=== PATIENT | male | born 1940 | race Caucasian/White ===

== ENCOUNTER → 2016-09-02 | Outpatient (CLI) | payer OTHER ==
--- NOTE | 2016-09-02 19:28 | US ---
Left Upper Extremity Ultrasound with Duplex Doppler History: Left upper extremity swelling and pain, palpable cord in the left neck. History of non-Hod gkin's lymphoma. Technique: The veins of the left neck and upper extremity are assessed with grayscale and Doppler ul trasound with compression of accessible vein segments. Comparison: None available. Findings: There is DVT throughout the visualized subclavian vein. The internal jugular vein is ayala nt, with diminished pulsatility, which could be related to clot in the innominate vein, although ther e is no visible clot in the innominate on miguel-scale or color. The axillary, brachial, radial, ulnar , basilic, and cephalic veins are patent. A superficial vein in the left neck in the area of palpabl e interest is thrombosed. Impressions 1. DVT in the left subclavian vein, extending to the confluence with the internal jugular vein. 2. Superficial thrombophlebitis in the region of palpable cord. Findings discussed with Dr. Param Luciano today at 1910 hours.
== END ==
LOC: FIMAGING 18:28
PROVIDERS: ATTEND Internal Medicine Hematology & Oncology
DX: I82.B12 Acute embolism and thrombosis of left subclavian vein (principal); I80.8 Phlebitis and thrombophlebitis of other sites

== ENCOUNTER 2017-06-01 09:09 | Inpatient (IN) | payer OTHER ==
--- NOTE | 2017-06-01 09:12 | EDPHY ---
H & P Time Seen by Provider: 06/01/17 09:11 HPI/ROS: CHIEF COMPLAINT: Stroke alert, left-sided weakness HISTORY OF PRESENT ILLNESS: The patient is brought to the emergency department as a stroke alert. He developed acute left-sided weakness approximately 35 minutes prior to arrival at 8:30 a.m.. The patient reportedly was having intercourse with his in the shower when his symptoms developed. The patient does have a history of arrhythmia and is currently on Xarelto. He took that medication yesterday as prescribed. The patient states that his left- sided arm and leg weakness is improving however has not resolved. He denies significant headache. The patient denies prior history of stroke or TIA. The patient does have a history of colon cancer by his report. REVIEW OF SYSTEMS: A comprehensive 10 point review of systems is otherwise negative aside from elements mentioned in the history of present illness. Source: Patient - Personal History Tetanus Vaccine Date: within last 10 years - Medical/Surgical History Hx Asthma: No Hx Chronic Respiratory Disease: No Hx Diabetes: No Hx Cardiac Disease: No Hx Renal Disease: No Hx Cirrhosis: No Hx Alcoholism: No Hx HIV/AIDS: No Hx Splenectomy or Spleen Trauma: No Other PMH: PMH: polycythemia, pacer for bradycardia - Social History Smoking Status: Never smoked - Physical Exam Exam: General Appearance: Alert, no distress Eyes: Pupils equal and round no pallor or injection ENT, Mouth: Mucous membranes moist Respiratory: There are no retractions, lungs are clear to auscultation, pacemaker battery noted to left anterior chest wall Cardiovascular: Regular rate and rhythm Gastrointestinal: Abdomen is soft and nontender, no masses, bowel sounds normal Neurological: Alert and oriented x4, 4/5 strength noted left upper extremity, left lower extremity, pronator drift present, speech fluent questionable mild facial droop noted on the left side Skin: Warm and dry, no rashes Musculoskeletal: Neck is supple nontender Extremities: symmetrical, full range of motion Constitutional: Initial Vital Signs Temperature (C) 36.8 C 06/01/17 09:10 Heart Rate 83 06/01/17 09:10 Respiratory Rate 18 06/01/17 09:10 Blood Pressure 147/94 H 06/01/17 09:10 O2 Sat (%) 95 06/01/17 09:10 O2 Delivery Mode Room Air O2 (L/minute) 2 Allergies/Adverse Reactions: No Known Allergies Allergy (Verified 06/10/16 11:52) Home Medications: Medication Instructions Recorded Hydroxyurea [Hydrea 500 mg (RX)] 12/25/12 Xarelto 06/01/16 Medical Decision Making - Diagnostics EKG Interpretation: EKG: Complete interpretation has been separately recorded in the [facility] archive. Summary impression: Atrial paced rhythm, rate 86 ED Course/Re-evaluation: The patient presents to the ED is acute stroke alert. He was last seen normal at 830 this morning. He arrives with an NIH stroke scale 7-8. The patient was taken for a stat noncontrast head CT scan which demonstrated no evidence of intracranial hemorrhage. The patient did have a CT angiogram of his head and neck which demonstrates no evidence of dissection or significant stenosis. The patient return from the CT scanner. The patient does take Xarelto for underlying arrhythmia. The patient reports he last took this medication yesterday. The patient is not a candidate for thrombolytics therapy based upon his Xarelto usage. Consultation was made with the patient's primary care provider Dr. Theo Crawford at 9:50 a.m.. The patient has been given a 325 mg dose of aspirin. Consultation was made with Neurology service at 9:53 a.m. The patient will be admitted to the hospital for further evaluation and management of his acute stroke. He cannot undergo an MRI secondary to his pacemaker. Differential Diagnosis: Differential diagnosis considered includes stroke, TIA, migraine headache, intracranial hemorrhage Critical Care Time: Critical care time exclusive of procedures and exclusive of the PA's time was 35 minutes, performed by myself, Francois Cummings MD. The patient arrives to the emergency department emergently by EMS with an acute stroke. He required emergent transfer to the CT scan to exclude intracranial hemorrhage. Patient was found to have an acute stroke and will require admission to the hospital for further care. Consultation was made with the patient's primary care provider Dr. Jarvis Crawford as well as our on-call Neurology service. - Data Points Laboratory Results: Laboratory Results 06/01/17 09:18 06/01/17 09:18 06/01/17 06/01/17 06/01/17 09:18 09:18 09:18 WBC 3.66 10^3/uL L 10^3/uL (3.80-9.50) RBC 6.24 10^6/uL 10^6/uL (4.40-6.38) Hgb 16.3 g/dL g/dL (13.7-17.5) POC Hgb Hct 52.0 % H % (40.0-51.0) POC Hct MCV 83.3 fL fL (81.5-99.8) MCH 26.1 pg L pg (27.9-34.1) MCHC 31.3 g/dL L g/dL (32.4-36.7) RDW 17.4 % H % (11.5-15.2) Plt Count 279 10^3/uL 10^3/uL (150-400) MPV 12.3 fL H fL (8.7-11.7) Neut % (Auto) Not Reported Lymph % (Auto) Not Reported Kay % (Auto) Not Reported Eos % (Auto) Not Reported Baso % (Auto) Not Reported Nucleat RBC Rel Count 0.0 % % (0.0-0.2) Absolute Neuts (auto) Not Reported Absolute Lymphs (auto) Not Reported Absolute Monos (auto) Not Reported Absolute Eos (auto) Not Reported Absolute Basos (auto) Not Reported Absolute Nucleated RBC 0.00 10^3/uL 10^3/uL (0-0.01) Immature Gran % Not Reported Seg Neutrophils % 62 % % Band Neutrophils % 15 % % Lymphocytes % 8 % % Monocytes % 8 % % Eosinophils % 4 % % Basophils % 3 % % Immature Gran # Not Reported Absolute Seg Neuts 2.27 10^/uL 10^/uL (1.70-6.50) Absolute Band Neuts 0.55 10^3/uL 10^3/uL (0.00-0.70) Absolute Lymphocytes 0.29 10^3/uL L 10^3/uL (1.00-3.00) Absolute Monocytes 0.29 10^3/uL L 10^3/uL (0.30-0.80) Absolute Eosinophils 0.15 10^3/uL 10^3/uL (0.03-0.40) Absolute Basophils 0.11 10^3/uL H 10^3/uL (0.02-0.10) Platelet Estimate ADEQUATE (ADEQ) Polychromasia 1+ H Elliptocytes 1+ H PT 15.0 SEC SEC (12.0-15.0) INR 1.18 H (0.83-1.16) POC Sodium Sodium 143 mEq/L mEq/L (134-144) POC Potassium Potassium 4.3 mEq/L mEq/L (3.5-5.2) POC Chloride Chloride 106 mEq/L mEq/L (97-110) Carbon Dioxide 26 mEq/l mEq/l (22-31) Anion Gap 11 mEq/L mEq/L (8-16) POC BUN BUN 21 mg/dL mg/dL (7-23) Creatinine 1.2 mg/dL mg/dL (0.7-1.3) POC Creatinine Estimated GFR 59 Glucose 94 mg/dL mg/dL (70-100) POC Glucose Calcium 10.5 mg/dL H mg/dL (8.5-10.4) 06/01/17 09:13 WBC RBC Hgb POC Hgb 17.7 gm/dL H gm/dL (13.7-17.5) Hct POC Hct 52 % H % (40-51) MCV MCH MCHC RDW Plt Count MPV Neut % (Auto) Lymph % (Auto) Kay % (Auto) Eos % (Auto) Baso % (Auto) Nucleat RBC Rel Count Absolute Neuts (auto) Absolute Lymphs (auto) Absolute Monos (auto) Absolute Eos (auto) Absolute Basos (auto) Absolute Nucleated RBC Immature Gran % Seg Neutrophils % Band Neutrophils % Lymphocytes % Monocytes % Eosinophils % Basophils % Immature Gran # Absolute Seg Neuts Absolute Band Neuts Absolute Lymphocytes Absolute Monocytes Absolute Eosinophils Absolute Basophils Platelet Estimate Polychromasia Elliptocytes PT INR POC Sodium 143 mEq/L mEq/L (134-144) Sodium POC Potassium 3.8 mEq/L mEq/L (3.3-5.0) Potassium POC Chloride 105 mEq/L mEq/L (97-110) Chloride Carbon Dioxide Anion Gap POC BUN 22 mg/dL mg/dL (7-23) BUN Creatinine POC Creatinine 1.3 mg/dL mg/dL (0.7-1.3) Estimated GFR Glucose POC Glucose 98 mg/dL mg/dL (70-100) Calcium Medications Given: Discontinued Medications Aspirin (Aspirin Rectal) 300 mg [place] EDNOW ONE Stop: 06/01/17 09:54 Last Admin: 06/01/17 10:05 Dose: Not Given Aspirin (Aspirin) 324 mg PO EDNOW ONE Stop: 06/01/17 09:55 Last Admin: 06/01/17 10:02 Dose: 324 mg Point of Care Test Results: 06/01/17 09:13 POC Sodium 143 POC Potassium 3.8 POC Chloride 105 POC BUN 22 POC Creatinine 1.3 POC Glucose 98 Departure - Departure Disposition: [facility] Inpatient Acute Clinical Impression: Acute ischemic stroke Condition: Fair NIH Stroke Scale Date of Exam: 06/01/17 Time of Exam: 09:50 Level of Consciousness: Alert LOC Questions: Answers Both LOC Commands: Performs Both Correctly Best Gaze: Normal Visual: No Visual Loss Facial Palsy: Minor Paralysis Motor Arm-Left: Some Effort to [place] Motor Arm-Right: No Drift Motor Leg-Left: Some Effort to [place] Motor Leg-Right: No Drift Limb Ataxis: Present in One Limb Sensory: Mild/Mod Sensory Loss Best Language: No Aphasia Dysarthria: Normal Extinction and Inattention (Neglect): No Abnormality NIH Scale Score: 7
[2017-06-01] MEDS ORDERED: IOPAMIDOL (ISOVUE 370) 100 ML BTL IV ONE (09:18)
[2017-06-01 09:27] LABS: PLATELET COUNT 279 10^3/uL (150-400)
--- NOTE | 2017-06-01 09:33 | CPEKG ---
Heart Rate: 86 RR Interval: 698 P-R Interval: 164 QRSD Interval: 144 QT Interval: 384 QTC Interval: 460 P [place]: 76 QRS [place]: -12 T Wave [place]: 49 EKG Severity - ABNORMAL ECG - EKG Impression: ATRIAL-PACED COMPLEXES EKG Impression: VENTRICULAR PREMATURE COMPLEX EKG Impression: RIGHT BUNDLE BRANCH BLOCK Electronically Signed By: Francois Cummings 01-Jun-2017 10:00:45
--- NOTE | 2017-06-01 09:33 | CPEKG ---
Heart Rate: 86 RR Interval: 698 P-R Interval: 164 QRSD Interval: 144 QT Interval: 384 QTC Interval: 460 P [place]: 76 QRS [place]: -12 T Wave [place]: 49 EKG Severity - ABNORMAL ECG - EKG Impression: ATRIAL-PACED COMPLEXES EKG Impression: VENTRICULAR PREMATURE COMPLEX EKG Impression: RIGHT BUNDLE BRANCH BLOCK Electronically Signed By: Francois Cummings 01-Jun-2017 10:00:45
[2017-06-01 09:48] LABS: INR 1.18 (0.83-1.16)
[2017-06-01] MEDS ORDERED: ASPIRIN RECTAL 300 MG SUPP PR ONE (09:53)
[2017-06-01] MEDS ORDERED: ASPIRIN 81 MG CHEWABLE TAB PO ONE (09:54)
[2017-06-01] MEDS ORDERED: ACETAMINOPHEN 325 MG TAB PO PRN (10:58)
[2017-06-01] MEDS ORDERED: NS 1,000 ML IV SCH (11:00)
[2017-06-01] MEDS: APIXABAN 5 MG TAB PO SCH ×2 (13:41→21:53)
[2017-06-01] MEDS: LEVOTHYROXINE 50 MCG TAB PO SCH (13:41)
--- NOTE | 2017-06-01 19:01 | SOAPPROG ---
SOAP Progress Note Assessment/Plan: Assessment: Plan: 06/01/17 19:12 1. CVA: significant improvement since initial onset of symptoms. Neurology consult pending. Unclear why this happened, given that he has been fully anticoagulated on Xarelto. Will change him to Eliquis, continue aspirin. No need for echocardiogram, given that he is already on treatment for possible clot. Will get PT, OT, and speech evaluations. 2. Hx PE. On chronic anticoagulation 3. Hypothyroidism, on replacement. Will continue 4. Obstructive sleep apnea, on CPAP. 5. 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 CAD, stable on recent heart scan. 7. Hypercalcemia--being followed in office. 8. Dispo: possibly home tomorrow if no worsening of symptoms. Low threshold for repeat CT. 9. DVT prophylaxis: will be on Eliquis. Subjective: 76 yo male with hx of PE, currently on Xarelto, and gastric lymphoma was in the shower this morning with his when he developed acute onset L sided weakness and gradually slid to the floor. He wasn't able to move either his L upper or L lower extremity to get himself out of the shower, so his pulled him out. She subsequently called 911, and pt was brought to the ED. He did note improvement in his weakness en route to the hospital, though not full resolution. CT brain was negative for hemorrhage, mass, infarct. MRI not done due to the presence of a pacemaker, placed following significant bradycardia. No hx atrial fibrillation. CTA of the head and neck showed no clot. He was not given tpa due to his Xarelto use. His last dose was yesterday morning. He was given 4 baby aspirin. EKG showed a paced rhythm, rate 86, RBBB. Currently, he has continued to notice increasing strength on his L side. He is able to lift both his arm and leg off the bed. He denies any swallowing difficulties or visual symptoms. His speech has seemed garbled at times to his family, but is currently ok. Objective: Vital Signs Temp Pulse Resp BP Pulse Ox 36.7 C 74 14 103/57 L 94 06/01/17 15:35 06/01/17 15:35 06/01/17 15:35 06/01/17 15:35 06/01/17 15:35 05/31/17 06/01/17 06/02/17 05:59 05:59 05:59 Intake Total 870 Output Total 775 Balance 95 PT 15.0 SEC (12.0-15.0) 06/01/17 09:18 INR 1.18 (0.83-1.16) H 06/01/17 09:18 General: well-appearing, well-nourished, pleasant, talkative, NAD HEENT: NC/AT. PERRL, EOMI. Normal hearing. O/P without lesions. Tongue midline, palate rises symmetrically. Neck: no masses, adenopathy, thyromegaly. No carotid bruits. Lungs: clear bilaterally, though he is not able to sit up in bed. Had to role onto his side for exam. Cardiovascular: RRR without murmur. Mild LE edema. No cyanosis. Chronic vascular skin changes. Abdomen: +bowel sounds, soft, NT. No hepatosplenomegaly, masses Neurologic: alert, oriented. CN intact. No facial droop. Speech clear, no dysphasia. LUE weakness--lifts arm but can't leave it raised against resistance. 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 Coordination off--can't flex at elbow smoothly to bring hand to face. Hand flops onto face. With eyes closed, had some difficulty finding face with L hand. LLE also weak, though able to lift leg off bed and move it around. Mild decreased sensation on inner aspect of L leg. Some memory loss--not new. Did not recall CTAs. Psychiatric: normal mood, affect. ICD10 Worksheet Patient Problems: Problems Problem Status Onset Acute ischemic stroke Acute Closed trimalleolar fracture Active
--- NOTE | 2017-06-01 20:15 | GHP ---
[f rep st] HISTORY AND PHYSICAL DATE OF ADMISSION: 06/01/2017 HISTORY OF PRESENT ILLNESS: The patient is a 76-year-old male with a history of pulmonary embolism, currently on Xarelto and gastric lymphoma, who was in the shower this morning with his when he developed acute onset left-sided weakness and gradually slid to the floor. He was not able to move either his left upper or left lower extremity to get himself out of the shower, so his pulled him out. She subsequently called 911 and patient was brought to the emergency department. He did note some improvement in his weakness on route to the hospital, though not full resolution. In the emergency department CT of the brain was negative for hemorrhage, mass or infarct. MRI was not done due to the presence of a pacemaker which was placed following significant bradycardia. There is no history of atrial fibrillation. CT angiogram of the head and neck showed no clot. He was not given tPA due to his recent Xarelto use. His last dose was yesterday morning. He was given 4 baby aspirin in the emergency department. His EKG showed a paced rhythm with a rate of 86 and a right bundle branch block. Currently, he has continued to notice increasing strength on his left side. He is able to lift both his arm and leg off the bed , which he was not able to do previously. He denies any swallowing difficulties or visual symptoms. His speech has seemed garbled at times to his family, but currently seems normal to them. PAST MEDICAL HISTORY: Is significant for memory loss, pulmonary embolism x2, testicular hypofunction, central vertigo, polycythemia vera, hypothyroidism, insomnia, obstructive sleep apnea, gastric lymphoma, hypercalcemia, elevated coronary calcium and bradycardia. MEDICATIONS: Depo-Testosterone 2 mg IM every 3 weeks, sildenafil 20 mg 3 tablets orally as needed, levothyroxine 50 mg daily, allopurinol 300 mg daily, Xarelto 20 mg daily, vitamin D 2000 international units daily, Co Q10 100 mg 3 capsules daily, multivitamin 1 daily. ALLERGIES: No known drug allergies. SURGICAL HISTORY: Partial colon resection 1982, bilateral hernia repair, back surgery 1985, pacemaker placement January 2013, cataract surgery. FAMILY HISTORY: His father had an [place]. His mother had breast cancer. His maternal grandfather had diabetes and his maternal grandmother had a stroke. He has 1 son who is healthy. SOCIAL HISTORY: He is and lives with his . He is a nonsmoker. 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 REVIEW OF SYSTEMS: GENERAL: No fever, chills. No weight loss or gain. HEENT : No sore throat or head congestion. No visual changes. No problems with swallowing. Has noted some mild lightheadedness recently. RESPIRATORY: No cough or shortness of breath. CARDIOVASCULAR: No chest pain or irregular rhythm. He does have some mild lower extremity edema. GASTROINTESTINAL: No nausea, vomiting, diarrhea, or constipation, though his bowels have changed since his lymphoma diagnosis but no recent acute change. No abdominal pain, blood in stool. GENITOURINARY: No hematuria, dysuria. MUSCULOSKELETAL: No joint pain or swelling. NEUROLOGIC: No history of weakness prior to today. No history of transient weakness or sensory loss. He does have some ongoing memory loss that is relatively unchanged, and some ongoing balance difficulty. PHYSICAL EXAMINATION: VITAL SIGNS: Blood pressure is 131/80, heart rate 73, respiratory rate 16, O2 saturation 98% on room air. He was afebrile in the emergency department. GENERAL: He is well appearing and well nourished, pleasant, talkative, in no acute distress. Family is in the room. HEENT: Normocephalic, atraumatic. Pupils equal, round, reactive to light. Extraocular movements are intact. Hearing is normal. Oropharynx without lesions. Tongue is midline and palate rises symmetrically. NECK: No masses or adenopathy. No thyromegaly. No carotid bruits. LUNGS: Clear bilaterally, though he is not able to sit himself up in bed and has to roll onto his side for lung exam. CARDIOVASCULAR: Regular rate and rhythm without murmur. Mild lower extremity edema. No cyanosis. Chronic vascular skin changes noted. ABDOMEN: Bowel sounds are normal. Soft and nontender. No hepatosplenomegaly or masses noted. NEUROLOGIC: He is alert and oriented. Cranial nerves intact. He has no facial droop. His speech is clear without dysarthria. Left upper extremity weakness: he is able to lift his arm, but he cannot leave it raised against resistance. Biceps and triceps muscle groups 4/5 strength. 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 His coordination is off. He can't flex at the elbow smoothly to bring his hand to his face. His hand just flops onto his face. With his eyes closed, he had some difficulty finding his face with his left hand. Left lower extremity is also weak, though he is able to lift his leg off the bed and move it around. Mild decreased sensation in the inner aspect of his left leg, both upper and lower. He has some memory loss, which is not new. He did not recall that he had CT angiogram earlier this morning. PSYCHIATRIC: Normal mood and affect. LABS: WBC 3.66, hemoglobin 16.3, hematocrit 52, platelets 279. Sodium 143, potassium 4.3, chloride 106, CO2 26, BUN 21, creatinine 1.2, glucose 94, calcium 10.5, PT 15, INR 1.18. ASSESSMENT AND PLAN: 1. Cerebrovascular accident. He has had significant improvement since the initial onset of symptoms. A neurology consult is pending. Unclear why this has happened, given that he was fully anticoagulated on Xarelto. We will change him to Eliquis and continue aspirin. No need for echocardiogram given that he is already on treatment for possible clot. We will get physical therapy , occupational therapy and speech evaluations. 2. History of pulmonary embolism on chronic anticoagulation. 3. Hypothyroidism, on replacement. We will continue levothyroxine. 4. Obstructive sleep apnea, on CPAP. 5. Gastric lymphoma followed by Dr. Luciano on maintenance chemo. 6. Coronary artery disease, stable on recent heart scan. 7. Hypercalcemia. This is being followed in the office. DISPOSITION: Possibly home tomorrow if no worsening symptoms. Low threshold for repeat CT. DEEP VENOUS THROMBOSIS PROPHYLAXIS: He will be on Eliquis. /[id number]/MODL MTDD
--- NOTE | 2017-06-02 01:16 | GCON ---
[f rep st] CONSULTATION NEUROLOGY CONSULTATION REFERRING PHYSICIAN: Jarvis Crawford MD BILLING INFORMATION: seventy total minutes on the floor reviewing the patient' s records, neuro imaging, in direct counseling with the patient and coordination of care. 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 In addition, he states he has had DVT, IJ clot along with pulmonary embolism. Because of these venous clots, he has been put on chronic anticoagulation. He denies any known history of thrombophilia or family history suggesting inherited thrombophilia. This morning after having sexual intercourse, the patient was walking to the bathroom and he had a hyper-acute onset of weakness in his left arm and leg. Because of this, he was brought to the emergency department under a stroke alert. He denies missing any doses of his daily oral anticoagulation. He was taking Xarelto 20 mg daily and had taken it the morning prior and had not taken it today morning yet. However, he denies any noncompliance or missing doses. Because of being on full-dose oral anticoagulation, he was not an IV tPA candidate so angiography of the head and neck were performed to exclude any large vessel thrombosis that could be amenable to percutaneous treatment. CT of the head and neck showed some minimal calcified plaques in the carotid bulbs without any significant stenosis. The CT angiogram of the head was normal. His ECG showed atrial paced complexes. Over the course of the day, he has had rapid and remarkable improvement of his left-sided hemiparesis. REVIEW OF SYSTEMS: A 10-point review of systems was done and only pertinent at [facility]. For past medical history, social history, family history, home medications and allergies, please see the History and Physical used for this admission. PHYSICAL EXAMINATION: VITAL SIGNS: Blood pressure was 129/81. Temperature 36.5. Heart rate 73. O2 sats at 100%. GENERAL: No acute distress. He is a very pleasant gentleman. NEURO: On higher mental function, he is awake and alert, lucid. He has no aphasia. Names 5/5. Follows commands 5/5. Repeats 5/ 5. On cranial nerve exam, there appears to be some very mild left-sided facial weakness in an upper motor neuron distribution along with some mild dysarthria. Otherwise, cranial nerve exam is unremarkable. On motor exam, there was some mild left hemiparesis in his left arm and left leg as well. He denied any sensory changes. Coordination was normal. IMPRESSION: 1. Stroke. 2. Status post pacemaker placement for cardiac dysrhythmia. 3. Previous history of venous thrombosis, on chronic oral anticoagulation. PLAN: The patient's clinical history and neurological exam are consistent with a resolving small vessel, lacunar type infarct in his right hemisphere subcortical white matter, perhaps. Due to the pacemaker, we cannot perform an MRI brain to visualize any diffusion with abnormalities. The exam would be more consistent with a subcortical lacunar type infarct. I spoke with the primary care team at length. Their plan is to switch him from Xarelto to Eliquis to be taken on a b.i.d. regimen to help smooth out any drug levels of the oral anticoagulation. This is certainly reasonable. In addition , I have recommended we add a baby aspirin daily along with an oral anticoagulant. If he has any excessive bleeding or bruising, he can discontinue the baby aspirin. He needs full evaluation by PT, OT and Speech Therapy with attention to his left -sided weakness and a swallow evaluation. Based on their recommendations, we can decide disposition. Specifically, we can consider discharge home with home health and PT versus inpatient rehabilitation. If he has any decline or decompensation, the plan would be a stat head CT without contrast. Otherwise, he may discharge home tomorrow based on his clinical course per the Internal Medicine team. No further recommendations now. We will continue to follow this very pleasant gentleman as needed. Please do not hesitate to call with any questions or change in neurological status. /[id number]/MODL MTDD
[2017-06-02] MEDS: LEVOTHYROXINE 50 MCG TAB PO SCH (06:34)
[2017-06-02] MEDS: APIXABAN 5 MG TAB PO SCH ×2 (08:45→20:36)
[2017-06-02] MEDS: ASPIRIN 81 MG CHEWABLE TAB PO SCH (08:45)
[2017-06-02] MEDS: CHOLECALCIFEROL VIT D3 1,000 UNITS TAB PO SCH (08:45)
[2017-06-02] MEDS ORDERED: Herbals/Supplements -Info Only PO SCH (09:00)
--- NOTE | 2017-06-02 10:06 | NEUROPROG ---
Assessment: 1. Probable right hemisphere subcortical infarct The patient's left-sided weakness continues to improve. Please see yesterday's consult note for details regarding workup thus far. Recommendations: 1. Oral anticoagulation plus baby aspirin daily. He can stop the baby aspirin if he develops excessive bruising or bleeding. 2. Disposition per PT and OT recommendations. 3. Follow-up with PCP and Neurology as needed as an outpatient. Subjective: No further symptoms, left-sided weakness improving Objective: Vital Signs Temp Pulse Resp BP Pulse Ox 36.6 C 80 16 121/70 H 96 06/02/17 07:03 06/02/17 07:03 06/02/17 07:03 06/02/17 07:03 06/02/17 07:03 06/01/17 06/02/17 06/03/17 05:59 05:59 05:59 Intake Total 1170 Output Total 1950 Balance -780 PT 15.0 SEC (12.0-15.0) 06/01/17 09:18 INR 1.18 (0.83-1.16) H 06/01/17 09:18 Awake and alert No aphasia Dysarthria resolved Mild left derrick paresis 35 total minutes floor time; reviewing history, in direct counseling with the patient and coordination of care Allergies/Adverse Reactions: No Known Allergies Allergy (Verified 06/10/16 11:52)
--- NOTE | 2017-06-02 14:12 | ASMTCASEMG ---
Living Arrangements What is your living Answers: Alone arrangement? Who do you live with? Type Of Residence What kind of residence do Answers: House you live in? Discharge Plan Comments Coordination Status Comments Notes: Pt is a 76 y/o man admitted w/ ischemic stroke. CM spoke w/ OT and they are recommending home w/ HC vs SNF. PT is recommending inpatient rehab. CM called Dr. Crawford's office to have an order written for an evaluation for inpatient rehab. CM spoke w/ Joseline from inpatient rehab and she will come assess. Joseline will touch base w/ case management tomorrow on placement. CM met w/ pt for dispo planning. Pt would ideally like to go to inpatient rehab. Pt reports that he will go with whatever the recommendations are. CM to follow and check in tomorrow. Date Signed: 06/02/2017 02:11 PM Electronically Signed By:PATIENCE Escudero
--- NOTE | 2017-06-02 15:11 | ASMTCMCOM ---
CM Note CM Note Notes: CM spoke w/ pt and again regarding dispo planning. Pt would like to go to a SNF as a plan B. Pt would like CM to make a referral to [facility]. CM faxed referral. Pt does not want to go to either [facility] or [facility]. CM to follow. Date Signed: 06/02/2017 03:10 PM Electronically Signed By:PATIENCE Escudero
--- NOTE | 2017-06-02 15:11 | ASMTCMCOM ---
CM Note CM Note Notes: CM spoke w/ pt and again regarding dispo planning. Pt would like to go to a SNF as a plan B. Pt would like CM to make a referral to [facility]. CM faxed referral. Pt does not want to go to either [facility] or [facility]. CM to follow. Date Signed: 06/02/2017 03:10 PM Electronically Signed By:PATIENCE Escudero
--- NOTE | 2017-06-02 15:11 | ASMTCMCOM ---
CM Note CM Note Notes: CM spoke w/ pt and again regarding dispo planning. Pt would like to go to a SNF as a plan B. Pt would like CM to make a referral to [facility]. CM faxed referral. Pt does not want to go to either [facility] or [facility]. CM to follow. Date Signed: 06/02/2017 03:10 PM Electronically Signed By:PATIENCE Escudero
--- NOTE | 2017-06-02 17:21 | SOAPPROG ---
SOAP Progress Note Assessment/Plan: Assessment:Ischemic stroke. IMproving however still needs more assistance than his can provide. Plan:Transfer to in-patient. Consider SNF if not improve by the time that he qualifies for rehab. 06/02/17 17:20 Subjective: Doing better. Strength greatly improved. Objective: Vital Signs Temp Pulse Resp BP Pulse Ox 97.7 F 77 16 125/69 H 93 06/02/17 15:07 06/02/17 15:07 06/02/17 15:07 06/02/17 15:07 06/02/17 15:07 06/01/17 06/02/17 06/03/17 05:59 05:59 05:59 Intake Total 1170 1040 Output Total 1950 1050 Balance -780 -10 PT 15.0 SEC (12.0-15.0) 06/01/17 09:18 INR 1.18 (0.83-1.16) H 06/01/17 09:18 Still having mild dysmetria. Lungs clear COR RRR. Strength and coordination much improved. PT feels that he is a candidate for SNF rehab. ICD10 Worksheet Patient Problems: Problems Problem Status Onset Acute ischemic stroke Acute Closed trimalleolar fracture Active
[2017-06-03 04:22] VITALS: O2SAT 94
[2017-06-03] MEDS: LEVOTHYROXINE 50 MCG TAB PO SCH (05:46)
[2017-06-03] MEDS: ASPIRIN 81 MG CHEWABLE TAB PO SCH (08:42)
[2017-06-03] MEDS: APIXABAN 5 MG TAB PO SCH (08:42)
[2017-06-03] MEDS: CHOLECALCIFEROL VIT D3 1,000 UNITS TAB PO SCH (08:43)
[2017-06-03 11:37] VITALS: BP 113/78; PULSE 71; RESP 16; TEMP 98.1
--- NOTE | 2017-06-03 13:49 | PDIAF ---
- Diagnosis Code Status: Full Code - Medication Management Discharge Medications: Medications to Continue on Transfer Chemo Therapy Infusion 1 each IV Q60D 06/01/17 [Last Taken Unknown] Cholecalciferol Vit D3 [Vitamin D3 (*)] 1,000 units PO DAILY 06/01/17 [Last Taken 05/31/17] Herbals/Supplements -Info Only 1 ea PO DAILY 06/01/17 [Last Taken Unknown] Levothyroxine [Synthroid 50 mcg (*)] 50 mcg PO DAILY06 06/01/17 [Last Taken ] Testosterone IM [Testosterone 100mg/ml IM inj (*)] 150 mg IM Q21D 06/01/17 [ Last Taken Unknown] Apixaban [Eliquis] 5 mg PO BID #60 tab 06/03/17 [Last Taken Unknown] Aspirin [Aspirin 81mg (*)] 81 mg PO DAILY tab.chew 06/03/17 [Last Taken Unknown ] Discharge Medications: Refer to the Discharge Home Medication list for PRN reason. - Orders Diet Recommendation: no restrictions on diet Diet Texture: Regular Texture Diet - Follow Up Care Current Providers and Referrals: Patient,NotPresent [Unknown] - As per Instructions
--- NOTE | 2017-06-03 14:08 | ASMTCMCOM ---
CM Note CM Note Notes: Inpt rehab has accepted pt and he is ready for DC today. Pt's son will drive him. Alerted [facility] to plan. Date Signed: 06/03/2017 02:07 PM Electronically Signed By:Evelyn Ray LCSW
--- NOTE | 2017-06-03 14:29 | GDS ---
[f rep st] DISCHARGE SUMMARY ADMITTING DIAGNOSIS: Probable right hemisphere subcortical infarct. HISTORY OF PRESENT ILLNESS: This 76-year-old male was brought to the emergency room by his afte r experiencing left upper and left lower extremity weakness while in the shower. He did have some im provement in his symptoms on the way to the hospital, though without full resolution. In the emergen cy room, a CT of the brain was negative for hemorrhage, mass, or infarct. MRI was not done because o f the presence of a pacemaker. The CT angiogram of the head and neck did not show a thrombus. He wa s not given tPA due to his recent Xarelto use. [facility] E[facility] showed a paced rhythm with a rate of 86. He did show some continued improvement to his left-sided weakness while in the emergency room but did have some residual weakness and transient gar bled speech, according to his family. He was admitted for further observation of his symptoms. Neur ology was consulted, who determined this was likely a right hemisphere subcortical infarct. They rec ommended that the patient be started on Eliquis and baby aspirin daily and continue to be monitored f or resolution of symptoms with a low threshold for a repeat CT if symptoms worsened. The patient con tinued to improve over the past 2 days, though without full resolution of the symptoms. He remains w ith some lingering left-sided weakness, particularly to his lower extremity and some to the upper ext remity, requiring assistance with ADLs, which the patient cannot complete independently at home, so h e will be discharged to a jail facility to regain strength. The patient is currently usin g a front-wheeled walker and is stable but requiring assistance. DISCHARGE MEDICATIONS: Include aspirin 81 mg p.o. daily, apixaban 5 mg b.i.d., vitamin D3 1000 units p.o. daily, levothyroxine 50 mcg p.o. daily, testosterone IM every 21 days, 150 mg. DISPOSITION: The patient will be discharged to jail facility. /[id number]/MODL
--- NOTE | 2017-06-03 14:29 | GDS ---
[f rep st] DISCHARGE SUMMARY ADMITTING DIAGNOSIS: Probable right hemisphere subcortical infarct. HISTORY OF PRESENT ILLNESS: This 76-year-old male was brought to the emergency room by his afte r experiencing left upper and left lower extremity weakness while in the shower. He did have some im provement in his symptoms on the way to the hospital, though without full resolution. In the emergen cy room, a CT of the brain was negative for hemorrhage, mass, or infarct. MRI was not done because o f the presence of a pacemaker. The CT angiogram of the head and neck did not show a thrombus. He wa s not given tPA due to his recent Xarelto use. [facility] His EKG showed a paced rhythm with a rate of 86. He did show some continued improvement to his left-sided weakness while in the emergency room but did have some residual weakness and transient gar bled speech, according to his family. He was admitted for further observation of his symptoms. Neur ology was consulted, who determined this was likely a right hemisphere subcortical infarct. They rec ommended that the patient be started on Eliquis and baby aspirin daily and continue to be monitored f or resolution of symptoms with a low threshold for a repeat CT if symptoms worsened. The patient con tinued to improve over the past 2 days, though without full resolution of the symptoms. He remains w ith some lingering left-sided weakness, particularly to his lower extremity and some to the upper ext remity, requiring assistance with ADLs, which the patient cannot complete independently at home, so h e will be discharged to a pen[facility]iary facility to regain strength. The patient is currently usin g a front-wheeled walker and is stable but requiring assistance. DISCHARGE MEDICATIONS: Include aspirin 81 mg p.o. daily, apixaban 5 mg b.i.d., vitamin D3 1000 units p.o. daily, levothyroxine 50 mcg p.o. daily, testosterone IM every 21 days, 150 mg. DISPOSITION: The patient will be discharged to penitentiary facility. /[id number]/MODL
== END 2017-06-03 14:25 | DRG 65 ==
LOC: EDUNIT# → INTOOBSV 09:49 → F3N 11:50 → OBSVTOIN 06-02 17:18
PROVIDERS: ADMIT Internal Medicine; ATTEND Internal Medicine
DX: I63.9 Cerebral infarction, unspecified (principal); R29.707 NIHSS score 7; C85.93 Non-Hodgkin lymphoma, unspecified, intra-abdominal lymph nodes; G47.33 Obstructive sleep apnea (adult) (pediatric); E03.9 Hypothyroidism, unspecified; D75.1 Secondary polycythemia; E83.52 Hypercalcemia; R00.1 Bradycardia, unspecified; Z86.711 Personal history of pulmonary embolism; Z79.01 Long term (current) use of anticoagulants; Z95.0 Presence of cardiac pacemaker
CPT/HCPCS: 82947-QW; 92523-GN; 97112-GP; 97116-GP; 97162-GP; 97165-GO; 97535-GO; G8978-GP-CJ; G8979-GP-CI; G8987-GO-CI; G8988-GO-CI; G9162-GN-CH; G9163-GN-CH; G9164-GN-CH; Q9967

== ENCOUNTER 2017-06-03 14:53 | Inpatient (IN) | payer OTHER ==
[2017-06-03] MEDS ORDERED: [UNRECOGNIZED DRUG - OTHER] IV SCH (15:45)
[2017-06-03] MEDS ORDERED: TESTOSTERONE IM 100 MG/ML SYRINGE IM SCH (15:45)
[2017-06-03] MEDS ORDERED: BISACODYL 10 MG SUPP PR PRN (15:46)
[2017-06-03] MEDS ORDERED: SENNOSIDES 1 TAB PO PRN (15:46)
--- NOTE | 2017-06-03 16:28 | PDOREHIP ---
Admission [facility] - Admission - 3 Day Assessment Period Admission Date/Day 1: 06/03/17 Day 2: 06/04/17 Day 3: 06/05/17 - Active Diagnoses Comorbidities and Co-existing Conditions at Admission: 64027. None of the Above - Skin Conditions Unhealed Pressure Ulcer (1 or more/Stage 1 or >)-Admission: 0. No
[2017-06-03] MEDS ORDERED: POLYETHYLENE GLYCOL 3350 17 GM PKT PO PRN (16:43)
--- NOTE | 2017-06-03 17:44 | GHP ---
[f rep st] HISTORY AND PHYSICAL POST ADMISSION PHYSICIAN EVALUATION AND REHABILITATION TREATMENT PLAN DATE OF ADMISSION: 06/03/2017 DATE OF EVALUATION: June 03, 2017 REFERRING FACILITY: [facility]. IMPAIRMENT GROUP: 1.1. DATE OF ONSET: 06/01/2017 REFERRING PHYSICIAN: Dr. Gonzalez REHABLITATION DIAGNOSIS: Cerebrovascular accident. ETIOLOGIC DIAGNOSIS: Left body involvement (right brain) CONSULTING PHYSICIANS: Neurology service, Dr. Zeeshan Savage. HISTORY OF PRESENT ILLNESS: This patient came to [facility] on 06/01/2017, with acute onset of left upper and left lower extremity weakness. He had a head CT which was negative for infarction. An MRI was not done due to the presence of a pacemaker. Head CT angiogram showed minimal calcified and noncalcified plaques involving the carotid bulb and proximal internal carotid artery bilaterally with no significant stenosis, and some degenerative disk disease involving the cervical spine with mild extrinsic compression on the right and left vertebral arteries, in the mid cervical spine. He had been taking rivaroxaban for a history of a pulmonary embolus, and reported that it was also indicated after his pacemaker placement. He was changed to apixaban for b.i.d. dosing, as this dosing might give him a more stable serum level of anticoagulation, and aspirin 81 mg was added to his medications. He had rapid improvement in his symptoms, but continues to have balance impairment and upper extremity ataxia. He has a history of memory loss and is undergoing evaluation with the Neurology Department at the [facility] in [place]. STUDIES AND LABORATORIES: In the hospital, CBC showed an elevated hemoglobin and hematocrit at 17.7 and 52. He had a low white blood cell count at 3.66. His absolute neutrophil count was 0.29. Coagulation studies revealed a slightly elevated INR at 1.18. Serum chemistry revealed normal renal function and electrolytes, except calcium that was slightly high at 10.5. PRECAUTIONS: He is a fall risk. ACTIVE COMORBIDITIES: He has no active tier 1, tier 2 or tier 3 comorbidities. PAST MEDICAL HISTORY: 1. Mantle cell lymphoma. 2. Hypogonadism. 3. Polycythemia vera. 4. Hypothyroidism. 5. Obstructive sleep apnea. 6. Hypercalcemia. 7. Sinus bradycardia. 8. Lower GI bleed. 9. Right ankle fracture. 10. Pulmonary embolus following right ankle fracture. 11. Syncope. 12. Bradycardia. PAST SURGERY HISTORY: 1. Partial colon resection in 1982. 2. Bilateral inguinal hernia repair. 3. Back surgery in 1985. 4. Pacemaker placement in 2012. 5. Placement of a port for chemotherapy approximately a year ago. 6. Cataract surgery. 7. Operative repair of a right ankle fracture in 2012. MEDICATIONS PRIOR TO ADMISSION: 1. Rivaroxaban. 2. Cholecalciferol. 3. Levothyroxine 50 mcg p.o. daily. 4. Bi-monthly infusion (every 60 days) of chemotherapy for mantle cell lymphoma. 5. Testosterone 150 mg IM q. 21 days. ADMIT MEDICATIONS: 1. Chemotherapy infusion q. 60 days. 2. Cholecalciferol 1000 mg p.o. daily. 3. Levothyroxine 50 mcg p.o. daily. 4. Testosterone 150 mg IM q. 21 days. 5. Apixaban 5 mg p.o. twice daily. 6. Aspirin 81 mg p.o. daily. ALLERGIES: There are no known drug allergies. FAMILY HISTORY: Noncontributory. PSYCHOSOCIAL HISTORY: He is . He lives with his . He has a local son. 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 He is a nonsmoker. His has Parkinson disease and is not capable of providing a lot of care. REVIEW OF SYSTEMS: He reports marked improvement and near resolution of his left-sided weakness. He has been ambulating, but he had some balance impairment. He is not in pain. He denies vision changes. He denies difficulty swallowing. He denies weakness, numbness or tingling of the extremities other than some mild lack of coordination in the left hand. He denies fevers, chills, weight change, cough, dyspnea, chest pain, palpitations, nausea, vomiting, constipation, diarrhea, dysuria, urinary frequency, joint swelling or joint pain, skin rash or skin breakdown, and otherwise a 10-point review of systems is negative. PHYSICAL EXAM: VITAL SIGNS: Blood pressure is 157/83, heart rate is 76, respiratory rate is 16, oxygen saturation is 92% on room air, temperature is 36.4 degrees centigrade. His weight is 85.9 kg for a body mass index of 25. GENERAL: This is a well-nourished, well-developed man, looks younger than his chronologic age. However, with a lianna complexion. Cooperative and in no acute distress. HEENT: Extraocular movements are intact. Pupils are equal, round, and reactive to light and accommodation. Mucous membranes are moist. Dentition is in good condition. There is no posterior oropharyngeal mucus. He has an uncrowded airway, Mallampati class 1. NECK: Supple. HEART: There is a regular rate and rhythm with no murmurs, rubs, or gallops. LUNGS: Clear to auscultation bilaterally. ABDOMEN: Soft, nontender, nondistended with normoactive bowel sounds, and no hepatosplenomegaly. EXTREMITIES: There is no cyanosis, clubbing, or edema. Radial and dorsalis pedis pulses are 2+ bilaterally. NEUROLOGIC: He is alert and oriented x3, though he appears to be somewhat forgetful in terms of the dates of recent events. Cranial nerves 2-12 are grossly intact. There is no focal weakness. Sensation is intact to light touch. Deep tendon reflexes are globally hypoactive. Plantar reflex is indeterminate on the right and upgoing on the left. [id number] is within normal limits on the right and is slightly inaccurate, but no dysmetria or past- pointing on the left. There is no pronator drift. CURRENT LEVEL OF FUNCTION PER THE PRE-ADMISSION SCREEN: Regarding diet, feeding and swallowing, he was taking a regular diet. For grooming, he required standby assistance with voice cues. For bathing, he required standby assist with voice cues. His shower transfer was accomplished with minimal assist and voice cues, and the use of grab bars. For dressing lower body, he required contact guard for balance and voice cues. He was continent of bowel and bladder. He was independent with bed mobility. Transfers required minimal assistance to standby assistance, depending on fatigue. He was using a front- wheeled walker. Regarding balance, a Rodriguez balance inventory was administered and he scored 29/56, indicating high fall risk. His endurance was fair. He was able to ambulate 100 feet with standby assist to contact or minimal assist with an altered gait pattern, scuffing his left foot, especially when fatigued. He would benefit from voice cues to increase step height. He also ambulated 50 feet with contact guard and voice cues with no device, but was noted to have loss of balance. Communication was normal. Regarding cognition, memory loss was noted. IMPRESSION: This patient is a 76-year-old man who had a cerebrovascular accident on 06/01/2017. Per the Neurology information technology consultant, this is likely a subcortical lacunar infarct. He has had rapid improvement, but continues to have deficits of balance impairment and left upper extremity ataxia. Additionally, he may have pre-existing cognitive impairment and was undergoing a cognitive evaluation at the [facility] in [place]. He is appropriate for inpatient rehabilitation where he will benefit from physical and occupational therapies to optimize mobility and activities of daily living, and Speech and Language Pathology for a cognitive evaluation. He will benefit from nursing care regarding fall risk, bowel and bladder, skin integrity, medication administration and medication education. He will benefit from the care of a physician regarding risk for neurologic deterioration; risk for infection with leukopenia; risk for deep venous thrombosis and risk for bleeding on anticoagulant; and comorbid conditions including hypogonadism, elevated blood pressure, polycythemia, and any possible complications from mantle cell lymphoma. His goal is to complete a rehabilitation stay and then return home with his and supportive services. For a safe discharge, it is anticipated that he will be eating, grooming, toileting, and dressing independently. He will have modified independence for bathing, transfers and ambulation with the least restrictive device. His balance will allow for safe mobilization with the least restrictive device. He will be safe to be alone at home. It is likely he will continue to require assistance for shopping, household management and meals. He will have therapy with Physical Therapy, Occupational Therapy, and Speech and Language Pathology for 60 minutes per day for each discipline, on 5-7 days of the week. His expected duration of stay is 5-7 days. It is anticipated that upon discharge, he will continue to benefit from home health services including nursing, speech and language pathology, a nurse's aide , occupational therapy, physical therapy and a stroke support group. PLAN: 1. Cerebrovascular accident, lacunar, right subcortical. PT and OT to optimize mobility and activities of daily living. His has Parkinson disease, so he needs to be quite independent to return home with her. 2. Pre-existing cognitive impairment. Assessment per Speech and Language Pathology. 3. Elevated blood pressure. He does not have a history of hypertension. Blood pressure will be monitored and if it remains elevated once he is out of the period of permissive hypertension, it would be reasonable to start treatments. 4. Hypogonadism. His next testosterone dose is due 06/17/2017. 5. Mantle cell lymphoma, with his next chemotherapy infusion due 06/13/2017. 6. Polycythemia vera. There is some mention of hydroxyurea having been used. However, he also has leukopenia, likely due to treatment of mantle cell lymphoma. It is possible that the polycythemia has contributed to his hypercoagulable condition leading to the stroke. We will continue apixaban plus aspirin, and any further decisions including possibility of phlebotomy will be deferred until after his discharge. 7. Hypothyroidism. Will continue levothyroxine. 8. Prophylaxis: The apixaban plus aspirin should be more than sufficient to prevent blood clots, and he will be mobilized progressively. /[id number]/MODL MTDD
[2017-06-03] MEDS: AQUAPHOR OINTMENT 3.5 OZ JAR TP SCH (19:59)
[2017-06-03] MEDS: APIXABAN 5 MG TAB PO SCH (19:59)
[2017-06-04] MEDS: LEVOTHYROXINE 50 MCG TAB PO SCH (05:50)
[2017-06-04] MEDS: APIXABAN 5 MG TAB PO SCH ×2 (07:58→20:44)
[2017-06-04] MEDS: CHOLECALCIFEROL VIT D3 1,000 UNITS TAB PO SCH (07:58)
[2017-06-04] MEDS: ASPIRIN 81 MG CHEWABLE TAB PO SCH (08:14)
[2017-06-04] MEDS ORDERED: Herbals/Supplements -Info Only PO SCH (09:00)
--- NOTE | 2017-06-04 10:58 | SOAPPROG ---
SOAP Progress Note Assessment/Plan: Assessment: CVA- VERY MILD UE/LE WEAKNESS WITH MILD LEFT FOOT DROP. HE WAS INSTRUCTED ON EXERCISES TO STRENGTHEN ANKLE DORSIFLEXORS. PT AND OT TO ADDRESS GAIT DYSFUNCTION, CORE STRENGTH, AND BALANCE DEFICITS COGNITIVE DEFICITS- ST EVALUATION PENDING TO CHECK FOR SUBTLE COGNITIVE DEFICITS HTN- CURRENT BP 132/82 MANTLE CELL LYMPHOMA- HAS CHEMOTX SCHEDULED FOR NEXT WEEK POLYCYTHEMIA VERA- ON APIXIBAN AND ASA FOR DVT PROPHALXIS HYPOTHYROIDISM -CONTINUE LEVOTHYROXINE Plan: 06/04/17 10:45 Subjective: HIS ONLY C/O THIS AM IS DECREASED LEFT ANKLE DF STRENGTH Objective: Vital Signs Temp Pulse Resp BP Pulse Ox 36.5 C 92 17 132/82 H 93 06/04/17 06:48 06/04/17 06:48 06/04/17 06:48 06/04/17 06:48 06/04/17 06:48 06/03/17 06/04/17 06/05/17 05:59 05:59 04:59 Intake Total 607 720 Output Total 850 Balance -243 720 Physical Exam - Physical Exam General Appearance: WD/WN, alert, no apparent distress Respiratory: lungs clear Abdomen: non-tender, soft Extremities: normal range of motion (SLIGHT DECREASE IS LEFT ANKLE DF SECONDARY TO WEAKNESS OF TA), No calf tenderness, No swelling, No Velia's sign Neuro/Psych: alert, normal mood/affect, motor weakness (1/2 GRADE LEFT TA WEKANESS) ICD10 Worksheet Patient Problems: Problems Problem Status Onset Closed trimalleolar fracture Active Acute ischemic stroke Acute
[2017-06-04] MEDS: AQUAPHOR OINTMENT 3.5 OZ JAR TP SCH ×2 (16:05→20:47)
[2017-06-05] MEDS: LEVOTHYROXINE 50 MCG TAB PO SCH (05:53)
[2017-06-05] MEDS: AQUAPHOR OINTMENT 3.5 OZ JAR TP SCH ×2 (08:06→20:23)
[2017-06-05] MEDS: CHOLECALCIFEROL VIT D3 1,000 UNITS TAB PO SCH (08:06)
[2017-06-05] MEDS: APIXABAN 5 MG TAB PO SCH ×2 (08:06→20:16)
[2017-06-05] MEDS: ASPIRIN 81 MG CHEWABLE TAB PO SCH (08:06)
--- NOTE | 2017-06-05 09:50 | SOAPPROG ---
SOAP Progress Note Assessment/Plan: Assessment: CVA- VERY MILD UE/LE WEAKNESS WITH MILD LEFT FOOT DROP. HE WAS INSTRUCTED ON EXERCISES TO STRENGTHEN ANKLE DORSIFLEXORS. PT AND OT TO ADDRESS GAIT DYSFUNCTION, CORE STRENGTH, AND BALANCE DEFICITS COGNITIVE DEFICITS- ST EVALUATION PENDING TO CHECK FOR SUBTLE COGNITIVE DEFICITS. HE WOULD BENEFIT FROM EXERCISES TO IMPROVE MEMORY AND RECALL HTN- CURRENT BP 128/79 MANTLE CELL LYMPHOMA- HAS CHEMOTX SCHEDULED FOR NEXT WEEK POLYCYTHEMIA VERA- ON APIXIBAN AND ASA FOR DVT PROPHALXIS HYPOTHYROIDISM -CONTINUE LEVOTHYROXINE 06/04/17 10:45 06/05/17 09:50 Subjective: REPORTS SOME DIZZINESS WITH CHANGES OF POSITION. REPORTS PROBLEMS WITH SHORT TERM MEMORY. HE REPORTS DIFFICULTY FOLLOWING NEWS STORIES ON TV, OR WHILE READING. RELATES THAT THIS MAY BE DUE TO CHEMOTX Objective: Vital Signs Temp Pulse Resp BP Pulse Ox 36.6 C 79 16 128/79 H 95 06/05/17 05:55 06/05/17 05:55 06/05/17 05:55 06/05/17 05:55 06/05/17 05:55 06/04/17 06/05/17 06/06/17 06:59 05:59 05:59 Intake Total 480 Output Total Balance 480 Physical Exam - Physical Exam General Appearance: alert, no apparent distress Respiratory: lungs clear, normal breath sounds Cardiac/Chest: No edema, No gallop, No friction rub Abdomen: non-tender, soft Skin: normal color, warm/dry Neuro/Psych: alert, normal mood/affect, oriented x 3, cognition abnormalities ( SHORT TERM RECALL IMPAIRED SUCH RECALLING EVENTS FROM YESTERDAY. ) ICD10 Worksheet Patient Problems: Problems Problem Status Onset Closed trimalleolar fracture Active Acute ischemic stroke Acute
[2017-06-06] MEDS: LEVOTHYROXINE 50 MCG TAB PO SCH (06:21)
[2017-06-06] MEDS: APIXABAN 5 MG TAB PO SCH ×2 (08:43→20:55)
[2017-06-06] MEDS: ASPIRIN 81 MG CHEWABLE TAB PO SCH (08:43)
[2017-06-06] MEDS: CHOLECALCIFEROL VIT D3 1,000 UNITS TAB PO SCH (08:43)
--- NOTE | 2017-06-06 09:14 | SOAPPROG ---
SOAP Progress Note Assessment/Plan: Assessment: Cerebrovascular accident, lacunar, right subcortical. * Initial functional independence measure 90 on 06/06/2017. Ambulated 300 feet with standby assist using a tracking pole. Develops left foot drop with fatigue. Climbed 18 steps with 1 rail. Scored 32/56 on the Rodriguez balance inventory. Accomplish his ADLs with supervision but cognitive impairment was noted. He redirected the shower head away from him when he entered the shower and then was unable to find water. Continue PT and OT to optimize mobility and activities of daily living. Pre-existing cognitive impairment. Assessment per Speech and Language Pathology. * Scored 24/30 on the [place] cognitive Assessment. Deficits to delayed recall , serial sevens and naming. Hypogonadism. His next testosterone dose is due 06/17/2017. Mantle cell lymphoma, with his next chemotherapy infusion due 06/13/2017. Polycythemia vera. Also has leukopenia, likely due to treatment of mantle cell lymphoma. It is possible that the polycythemia has contributed to his hypercoagulable condition leading to the stroke. Continue apixaban plus aspirin. Hypothyroidism. Will continue levothyroxine. Prophylaxis: The apixaban plus aspirin should be more than sufficient to prevent blood clots, and he will be mobilized progressively. Attended staffing, 15 minutes. Discussed with case management, dietitian, PT, OT, CHIEF PHYSICAL THERAPIST, nursing. His has Parkinson disease, so he needs to be quite independent to return home with her. There are several steps to enter the house. Set discharge date for 06/14/2017. 06/06/17 11:38 Subjective: No complaints, doing well, slept well, not in pain. Reports he appreciates the memory strategies she is learning from CHIEF PHYSICAL THERAPIST. Objective: Vital Signs Temp Pulse Resp BP Pulse Ox 36.7 C 78 16 123/78 H 95 06/06/17 06:44 06/06/17 06:44 06/06/17 06:44 06/06/17 06:44 06/06/17 06:44 06/05/17 06/06/17 06/07/17 05:59 05:59 05:59 Intake Total 1400 Output Total Balance 1400 - Time Spent With Patient Time Spent With Patient: Greater than 35 minutes floor time today, including more than 50% of time in coordination of care during staffing meeting, and counseling patient. Physical Exam - Physical Exam General Appearance: WD/WN, alert, no apparent distress Respiratory: No respiratory distress, No accessory muscle use Skin: normal color, warm/dry Neuro/Psych: alert, normal mood/affect, oriented x 3 ICD10 Worksheet Patient Problems: Problems Problem Status Onset Closed trimalleolar fracture Active Acute ischemic stroke Acute
[2017-06-06] MEDS: AQUAPHOR OINTMENT 3.5 OZ JAR TP SCH ×2 (09:34→20:55)
[2017-06-07] MEDS: LEVOTHYROXINE 50 MCG TAB PO SCH (06:38)
[2017-06-07] MEDS: CHOLECALCIFEROL VIT D3 1,000 UNITS TAB PO SCH (08:10)
[2017-06-07] MEDS: ASPIRIN 81 MG CHEWABLE TAB PO SCH (08:10)
[2017-06-07] MEDS: APIXABAN 5 MG TAB PO SCH ×2 (08:10→20:30)
[2017-06-07] MEDS: AQUAPHOR OINTMENT 3.5 OZ JAR TP SCH ×2 (08:11→20:34)
--- NOTE | 2017-06-07 09:44 | SOAPPROG ---
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 Recommended incentive spirometry to maintain good pulmonary health. Remainder of plan below is essentially unchanged. Cerebrovascular accident, lacunar, right subcortical. * Initial functional independence measure 90 on 06/06/2017. Ambulated 300 feet with standby assist using a tracking pole. Develops left foot drop with fatigue. Climbed 18 steps with 1 rail. Scored 32/56 on the Rodriguez balance inventory. Accomplish his ADLs with supervision but cognitive impairment was noted. He redirected the shower head away from him when he entered the shower and then was unable to find water. Continue PT and OT to optimize mobility and activities of daily living. Pre-existing cognitive impairment. Assessment per Speech and Language Pathology. * Scored 24/30 on the [place] cognitive Assessment. Deficits to delayed recall , serial sevens and naming. Hypogonadism. His next testosterone dose is due 06/17/2017. Mantle cell lymphoma, with his next chemotherapy infusion due 06/13/2017. Polycythemia vera. Also has leukopenia, likely due to treatment of mantle cell lymphoma. It is possible that the polycythemia has contributed to his hypercoagulable condition leading to the stroke. Continue apixaban plus aspirin. Hypothyroidism. Will continue levothyroxine. Prophylaxis: The apixaban plus aspirin should be more than sufficient to prevent blood clots, and he will be mobilized progressively. His has Parkinson disease, so he needs to be quite independent to return home with her. There are several steps to enter the house. Set discharge date for 06/14/2017. 06/07/17 09:41 Subjective: Chief complaint: Pulmonary health No acute events overnight. No new shortness of breath or chest pain, no new numbness, tingling, or weakness. Patient is working well with therapies, denies any cough. Says he has had some pulmonary complications in the past because of his lymphoma. Has not been doing incentive spirometry. Otherwise working well with therapies becoming more independent. Objective: Vital Signs Temp Pulse Resp BP Pulse Ox 36.4 C 77 16 131/80 H 95 06/07/17 06:58 06/07/17 06:58 06/07/17 06:58 06/07/17 06:58 06/07/17 06:58 06/06/17 06/07/17 06/08/17 05:59 05:59 05:59 Intake Total 1400 1820 358 Output Total 650 Balance 1400 1170 358 Physical Exam - Physical Exam General Appearance: WD/WN, alert, no apparent distress EENT: No scleral icterus (R), No scleral icterus (L) Respiratory: lungs clear, normal breath sounds, No respiratory distress, No accessory muscle use, No rales, No rhonchi, No wheezing, No prolonged expiration , No prolonged inspiration, No pleural rub, No pain on movement Cardiac/Chest: normal peripheral pulses, regular rate, rhythm, No edema, No diastolic murmur, No systolic murmur Abdomen: normal bowel sounds, non-tender, soft, No organomegaly, No guarding Skin: normal color, warm/dry, No cyanosis, No diaphoresis Extremities: non-tender, No pedal edema, No swelling Neuro/Psych: alert, normal mood/affect ICD10 Worksheet Patient Problems: Problems Problem Status Onset Closed trimalleolar fracture Active Acute ischemic stroke Acute
[2017-06-08] MEDS: LEVOTHYROXINE 50 MCG TAB PO SCH (06:00)
[2017-06-08] MEDS: CHOLECALCIFEROL VIT D3 1,000 UNITS TAB PO SCH (08:18)
[2017-06-08] MEDS: ASPIRIN 81 MG CHEWABLE TAB PO SCH (08:18)
[2017-06-08] MEDS: APIXABAN 5 MG TAB PO SCH ×2 (08:18→20:03)
[2017-06-08] MEDS: AQUAPHOR OINTMENT 3.5 OZ JAR TP SCH ×2 (09:05→20:03)
--- NOTE | 2017-06-08 11:45 | SOAPPROG ---
SOAP Progress Note Assessment/Plan: Assessment: Cerebrovascular accident, lacunar, right subcortical. * Initial functional independence measure 90 on 06/06/2017. Ambulated 300 feet with standby assist using a trekking pole. Develops left foot drop with fatigue. Climbed 18 steps with 1 rail. Scored 32/56 on the Rodriguez balance inventory. Accomplish his ADLs with supervision but cognitive impairment was noted. He redirected the shower head away from him when he entered the shower and then was unable to find the water. Continue PT and OT to optimize mobility and activities of daily living. Pre-existing cognitive impairment. Assessment per Speech and Language Pathology. * Scored 24/30 on the [place] cognitive Assessment. Deficits to delayed recall , serial sevens and naming. Hypogonadism. His next testosterone dose is due 06/17/2017. Mantle cell lymphoma, with his next chemotherapy infusion due 06/13/2017. Polycythemia vera. Also has leukopenia, likely due to treatment of mantle cell lymphoma. It is possible that the polycythemia has contributed to his hypercoagulable condition leading to the stroke. Continue apixaban plus aspirin. Hypothyroidism. Will continue levothyroxine. Prophylaxis: The apixaban plus aspirin should be more than sufficient to prevent blood clots, and he will be mobilized progressively. Attended staffing, 15 minutes. Discussed with case management, dietitian, PT, OT, RELOCATION MANAGER, nursing. His has Parkinson disease, so he needs to be quite independent to return home with her. There are several steps to enter the house. Set discharge date for 06/14/2017. 06/08/17 11:44 Subjective: No complaints. Would like to leave sooner. Sleeping well, not in pain. Objective: Vital Signs Temp Pulse Resp BP Pulse Ox 36.7 C 82 18 99/59 L 95 06/08/17 06:21 06/08/17 06:21 06/08/17 06:21 06/08/17 06:21 06/08/17 06:21 06/07/17 06/08/17 06/09/17 05:59 05:59 05:59 Intake Total 1820 1584 960 Output Total 650 1100 Balance 1170 1584 -140 Physical Exam - Physical Exam General Appearance: WD/WN, alert, no apparent distress Respiratory: No respiratory distress, No accessory muscle use Skin: normal color, warm/dry Neuro/Psych: no motor/sensory deficits, alert, normal mood/affect, oriented x 3 ICD10 Worksheet Patient Problems: Problems Problem Status Onset Closed trimalleolar fracture Active Acute ischemic stroke Acute
[2017-06-09] MEDS: LEVOTHYROXINE 50 MCG TAB PO SCH (06:19)
[2017-06-09] MEDS: AQUAPHOR OINTMENT 3.5 OZ JAR TP SCH ×2 (07:15→20:39)
[2017-06-09] MEDS: APIXABAN 5 MG TAB PO SCH ×2 (08:15→20:38)
[2017-06-09] MEDS: ASPIRIN 81 MG CHEWABLE TAB PO SCH (08:16)
[2017-06-09] MEDS: CHOLECALCIFEROL VIT D3 1,000 UNITS TAB PO SCH (08:16)
--- NOTE | 2017-06-09 10:56 | SOAPPROG ---
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 Doing well, mostly at a supervision level. Infusion on Tuesday. Remainder of plan relatively unchanged. A total of 35 minutes was spent on the floor in the care of the patient, the majority of time spent in the counseling and coordination of care regarding early discharge accommodation and planning. Cerebrovascular accident, lacunar, right subcortical. * Initial functional independence measure 90 on 06/06/2017. Ambulated 300 feet with standby assist using a trekking pole. Develops left foot drop with fatigue. Climbed 18 steps with 1 rail. Scored 32/56 on the Rodriguez balance inventory. Accomplish his ADLs with supervision but cognitive impairment was noted. He redirected the shower head away from him when he entered the shower and then was unable to find the water. Continue PT and OT to optimize mobility and activities of daily living. Pre-existing cognitive impairment. Assessment per Speech and Language Pathology. * Scored 24/30 on the [place] cognitive Assessment. Deficits to delayed recall , serial sevens and naming. Hypogonadism. His next testosterone dose is due 06/17/2017. Mantle cell lymphoma, with his next chemotherapy infusion due 06/13/2017. Polycythemia vera. Also has leukopenia, likely due to treatment of mantle cell lymphoma. It is possible that the polycythemia has contributed to his hypercoagulable condition leading to the stroke. Continue apixaban plus aspirin. Hypothyroidism. Will continue levothyroxine. Prophylaxis: The apixaban plus aspirin should be more than sufficient to prevent blood clots, and he will be mobilized progressively. His has Parkinson disease, so he needs to be quite independent to return home with her but she can reportedly provide some supervision. There are several steps to enter the house. Set discharge date for 06/14/2017. 06/07/17 09:41 06/09/17 10:53 Subjective: CC: discharge planning No acute events overnight, no new shortness of breath or chest pain, no new numbness, tingling or weakness. Wants to dc early as he has a trip planned for the 15th, infusing on the . Doing well, reports can provide some SBA at home. Otherwise therapies going well. Clearing foot better on the left with new choice of shoes. Objective: Vital Signs Temp Pulse Resp BP Pulse Ox 37.0 C 88 18 115/77 96 06/09/17 06:40 06/09/17 06:40 06/09/17 06:40 06/09/17 06:40 06/09/17 06:40 06/08/17 06/09/17 06/10/17 05:59 05:59 05:59 Intake Total 1584 1710 358 Output Total 1400 Balance 1584 310 358 Physical Exam - Physical Exam General Appearance: alert, no apparent distress EENT: No scleral icterus (R), No scleral icterus (L) Respiratory: No respiratory distress, No accessory muscle use Skin: normal color, warm/dry, No cyanosis Neuro/Psych: alert, normal mood/affect ICD10 Worksheet Patient Problems: Problems Problem Status Onset Closed trimalleolar fracture Active Acute ischemic stroke Acute
--- NOTE | 2017-06-09 12:49 | PDOREHIP ---
Admission [facility] - Admission - 3 Day Assessment Period Admission Date/Day 1: 06/03/17 Day 2: 06/04/17 Day 3: 06/05/17 Discharge [facility] - Discharge - 3 Day Assessment Period 2 Days Prior to Anticipated Discharge Date: 06/12/17 1 Day Prior to Anticipated Discharge Date: 06/13/17 Anticipated Discharge Date: 06/14/17 - Discharge Skin Conditions Unhealed Pressure Ulcer (1 or more/Stage 1 or >)-Discharge: 0. No
[2017-06-09 19:28] VITALS: TEMP 98.4
[2017-06-10] MEDS: LEVOTHYROXINE 50 MCG TAB PO SCH (05:59)
[2017-06-10 06:13] VITALS: BP 123/73; PULSE 76; RESP 18; O2SAT 97
[2017-06-10] MEDS: ASPIRIN 81 MG CHEWABLE TAB PO SCH (08:30)
[2017-06-10] MEDS: CHOLECALCIFEROL VIT D3 1,000 UNITS TAB PO SCH (08:30)
[2017-06-10] MEDS: APIXABAN 5 MG TAB PO SCH (08:30)
[2017-06-10] MEDS: AQUAPHOR OINTMENT 3.5 OZ JAR TP SCH (08:33)
--- NOTE | 2017-06-14 04:24 | GDS ---
[f rep st] DISCHARGE SUMMARY ADMITTING DIAGNOSIS: Cerebrovascular accident. DISCHARGE DIAGNOSIS: Cerebrovascular accident. OTHER DISCHARGE DIAGNOSES: 1. Cognitive impairment. 2. Hypothyroidism. HISTORY AND HOSPITAL COURSE: This patient was admitted from [facility]. He had presented there on 06/01/2017 with acute onset of left upper and lower extremity weakness. Head CT was negative for infarction. MRI was not done due to the presence of a pacemaker. CT angiogram showed minimal calcified and noncalcified plaques involving the carotid bulb and proximal intercarotid artery bilaterally with no significant stenoses. He had been taking rivaroxaban due to a history of pulmonary embolus. This was changed to apixaban, which is dosed b.i.d. on the theory that it would give him more constant serum level, and aspirin was added to his medications. He had rapid improvement in his symptoms, but he continued to have balance impairment and upper extremity ataxia. He had improvement in rehabilitation. His initial functional independence measure was 90 on 06/06/2017. This was consistent with assisted living level of function. He ambulated 300 feet with standby assist using a trekking pole. With fatigue, he would develop a left footdrop. He was able to climb 18 steps with 1 rail. He had balance impairment scoring 32/56 on the Rodriguez Balance inventory, which is consistent with a fall risk. He was able to accomplish activities of daily living with supervision. He had considerable improvement in his function and was ready for discharge several days later on 06/10/2017. He had pre-existing cognitive impairment and had been undergoing an evaluation by the Neurology Department at the [facility] in [place]. He was seen by Speech and Language Pathology. The [place] Cognitive Assessment was administered and he scored a 24/30 which is just below the normal range. He was noted to have deficits to delayed recall and he had difficulty with serial sevens and naming. LABS AND STUDIES DURING HIS STAY: There were none. DISCHARGE PLAN: Condition upon discharge is good. Activity is ad renzo, but supervision for safety with activities of daily living. Diet is regular. DATE OF NEXT APPOINTMENT: He will follow up with his primary care provider, Dr. Jarvis Crawford, in approximately a week after discharge and he will follow up with oncologist, Dr. Param Luciano, on 06/13/2017. ISSUES TO BE ADDRESSED AT FOLLOWUP: 1. Functional status including cognitive status. He will continue outpatient PT, OT, and speech pathology, and can follow up with primary care regarding his progress. 2. A history of mantle cell lymphoma, undergoing chemotherapy. He will see oncologist, Dr. Luciano. /[id number]/MODL MTDD
== END 2017-06-10 15:12 | disposition home or self-care (01) | DRG 57 ==
LOC: BREH 14:53
PROVIDERS: ADMIT Internal Medicine; ATTEND Internal Medicine
DX: I69.354 Hemiplegia and hemiparesis following cerebral infarction affecting left non-dominant side (principal); I69.393 Ataxia following cerebral infarction; R41.3 Other amnesia; D45 Polycythemia vera; C83.10 Mantle cell lymphoma, unspecified site; E83.52 Hypercalcemia; E03.9 Hypothyroidism, unspecified; M50.30 Other cervical disc degeneration, unspecified cervical region; G47.33 Obstructive sleep apnea (adult) (pediatric); Z79.82 Long term (current) use of aspirin; Z79.01 Long term (current) use of anticoagulants; Z86.711 Personal history of pulmonary embolism; Z95.0 Presence of cardiac pacemaker
CPT/HCPCS: 92507-GN; 92522-GN; 97110-GO; 97110-GP; 97112-GO; 97112-GP; 97116-GP; 97162-GP; 97166-GO; 97530-GO; 97530-GP; 97532-GO; 97535-GO